=== PATIENT | male | born 1995 | race Caucasian/White ===

== ENCOUNTER 2018-05-26 08:46 | Inpatient (IN) ==
[2018-05-26] MEDS ORDERED: Morphine Inj 4 MG/ML Vial ONE (09:04)
[2018-05-26] MEDS ORDERED: Diphtheria/Tetanus/Pertussis Vaccine Inj 0.5 ML Syringe IM ONE (09:05)
[2018-05-26] MEDS ORDERED: ceFAZolin 2 GM Premix Inj 2 GM/50 ML PIGGYBACK IV.SIG ONE ×2 (09:05→10:00)
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
[2018-05-26 09:12] LABS: Baso % (Auto) 0.4 % (0.0-2.0); Eos # (Auto) 0.3 th/mm3 (0.0-0.4); Eos % (Auto) 2.8 % (0.0-4.0); Hematocrit 48.2 % (39.0-51.0); Hemoglobin 16.7 gm/dL (13.0-17.0); Lymph % (Auto) 10.6 % (9.0-44.0); Mean Corpuscular HGB Conc 34.7 % (32.0-36.0); Mean Corpuscular Hemoglobin 32.1 pg (27.0-34.0); Mean Corpuscular Volume 92.5 fL (80.0-100.0); Mean Platelet Volume 9.1 fL (7.0-11.0); Mono # (Auto) 0.5 th/mm3 (0.0-0.9); Mono % (Auto) 5.4 % (0.0-8.0); Neut # (Auto) 7.4 th/mm3 (1.8-7.7); Neut % (Auto) 80.8 % (16.0-70.0); Platelet Count 210 th/mm3 (150-450); Red Blood Count 5.21 mil/mm3 (4.50-5.90); Red Cell Distribution Width 14.1 % (11.6-17.2); White Blood Count 9.1 th/mm3 (4.0-11.0)
[2018-05-26 09:19] LABS: Activated Partial Thrombo Time 23.3 sec (24.3-30.1); INR 1.1 Ratio; Prothrombin Time 10.8 sec (9.8-11.6)
[2018-05-26] MEDS ORDERED: Etomidate Inj 20 MG/10 ML Ampul IV.PUSH ONE ×2 (09:23→09:25)
[2018-05-26] MEDS ORDERED: Succinylcholine Inj 200 MG/10 ML Vial ONE (09:24)
[2018-05-26] MEDS ORDERED: Lidocaine 2% 100 MG/5 ML Syringe ONE (09:24)
[2018-05-26] MEDS ORDERED: Lidocaine 2% 100 MG/5 ML Syringe IV.PUSH ONE (09:25)
[2018-05-26] MEDS ORDERED: Succinylcholine Inj 200 MG/10 ML Vial IV.PUSH ONE (09:25)
[2018-05-26] MEDS ORDERED: Propofol 1000 mg/100 ml Inj 1,000 MG/100 ML BOTTLE ONE (09:28)
[2018-05-26] MEDS ORDERED: Sod Chloride 0.9% Inj 1,000 ML IV.CONT SCH (09:30)
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
[2018-05-26] MEDS ORDERED: Propofol Inj 500 MG/50 ML Vial ONE (09:47)
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
[2018-05-26] MEDS ORDERED: Morphine Inj 4 MG/ML Vial IV.PUSH ONE (10:00)
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
[2018-05-26] MEDS: fentaNYL 10 mcg/mL Premix Drip 2,500 MCG/250 ML BAG IV.SIG PRN (11:43)
[2018-05-26 12:13] LABS: ABG Base Excess -1.1 mmol/L (-2-2); ABG PCO2 33 mmHg (38-42); ABG PO2 134 mmHg (61-120)
[2018-05-26] MEDS ORDERED: Acetaminophen 325 MG Tablet PO PRN (13:26)
[2018-05-26] MEDS ORDERED: Potassium Chloride 25 MEQ Effervescent Tablet PO PRN (13:34)
[2018-05-26] MEDS ORDERED: Propofol 1000 mg/100 ml Inj 1,000 MG/100 ML BOTTLE IV.CONT PRN (13:34)
[2018-05-26] MEDS ORDERED: Magnesium Sulfate Inj 4 GM in Sodium Chlor 0.9% Inj 92 ML IV.SIG PRN (13:34)
[2018-05-26] MEDS ORDERED: Potassium Phosphate 500 MG Soluble Tablet PO PRN ×2 (13:34)
[2018-05-26] MEDS ORDERED: Magnesium Oxide 400 MG Tablet PO PRN (13:34)
[2018-05-26] MEDS ORDERED: Potassium Phosphate Inj 30 MMOL in Sodium Chlor 0.9% Inj 250 ML IV.SIG PRN (13:34)
[2018-05-26] MEDS ORDERED: Potassium Chlor 20 mEq Premix 20 MEQ/100 ML PIGGYBACK IV.SIG PRN (13:34)
[2018-05-26] MEDS ORDERED: Potassium Chlor 40 mEq Premix 40 MEQ/100 ML PIGGYBACK IV.SIG PRN ×2 (13:34)
[2018-05-26] MEDS ORDERED: Magnesium Sulfate Inj 2 GM in Sodium Chlor 0.9% Inj 96 ML IV.SIG PRN (13:34)
[2018-05-26] MEDS ORDERED: Sodium Phosphate Inj 30 MMOL in Sodium Chlor 0.9% Inj 250 ML IV.SIG PRN (13:34)
[2018-05-26] MEDS: Propofol 1000 mg/100 ml Inj 1,000 MG/100 ML BOTTLE IV.CONT PRN (14:20)
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
[2018-05-26] MEDS: Oral Hygiene Kit OROPHARYNG SCH (18:32)
[2018-05-26] MEDS: Chlorhexidine 0.12% Oral Kit 15 ML UDC OROPHARYNG SCH (20:31)
[2018-05-26] MEDS: Famotidine 20 MG Tablet PO SCH (20:32)
[2018-05-26] MEDS: Senna/Docusate Sodium 8.6/50 MG Tablet PO SCH (20:32)
[2018-05-27] MEDS: Propofol 1000 mg/100 ml Inj 1,000 MG/100 ML BOTTLE IV.CONT PRN ×5 (00:10→23:59)
[2018-05-27] MEDS: Oral Hygiene Kit OROPHARYNG SCH ×5 (00:12→23:59)
[2018-05-27 04:12] LABS: Baso % (Auto) 0.3 % (0.0-2.0); Eos % (Auto) 0.3 % (0.0-4.0); Hematocrit 42.6 % (39.0-51.0); Hemoglobin 14.8 gm/dL (13.0-17.0); Lymph # (Auto) 0.5 th/mm3 (1.0-4.8); Lymph % (Auto) 7.4 % (9.0-44.0); Mean Corpuscular HGB Conc 34.7 % (32.0-36.0); Mean Corpuscular Hemoglobin 31.8 pg (27.0-34.0); Mean Corpuscular Volume 91.6 fL (80.0-100.0); Mean Platelet Volume 9.4 fL (7.0-11.0); Mono # (Auto) 0.5 th/mm3 (0.0-0.9); Mono % (Auto) 6.9 % (0.0-8.0); Neut # (Auto) 5.8 th/mm3 (1.8-7.7); Neut % (Auto) 85.1 % (16.0-70.0); Platelet Count 173 th/mm3 (150-450); Red Blood Count 4.65 mil/mm3 (4.50-5.90); White Blood Count 6.8 th/mm3 (4.0-11.0)
[2018-05-27 04:36] LABS: Alanine Aminotransferase 82 U/L (12-78); Anion Gap 11 meq/L (5-15); Aspartate Aminotransferase 57 U/L (15-37); Carbon Dioxide 21.4 meq/L (21.0-32.0); Chloride 108 meq/L (98-107); Glomerular Filtration Rate Greater Than 89 mL/min (>89); Glucose,Random 115 mg/dL (74-106); Potassium 3.2 meq/L (3.5-5.1); Sodium 140 meq/L (136-145)
[2018-05-27 04:38] LABS: Blood Urea Nitrogen 8 mg/dL (7-18); Total Protein 6.5 g/dL (6.4-8.2)
[2018-05-27 04:40] LABS: Alkaline Phosphatase 108 U/L (45-117)
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
[2018-05-27 06:12] LABS: ABG Base Excess -1.2 mmol/L (-2-2); ABG PCO2 34 mmHg (38-42); ABG PO2 62 mmHg (61-120)
--- NOTE | 2018-05-27 10:08 | MR ---
EXAM DATE: 05/27/2018 9:24 AM EDT AGE/SEX: 22 years / Male INDICATIONS: Pain. Trauma. CLINICAL DATA: This is the patient's subsequent encounter. Patient reports that signs and symptoms h ave been present for 2 days and indicates a pain score of Nonresponsive. MEDICAL/SURGICAL HISTORY: None. None. COMPARISON: [facility] [place], MR THORACIC SPINE W/O CONTRAST, 05/27/2018. [facility] [place], CT CERVICAL SPINE W/O CONTRA ST, 05/26/2018. . TECHNIQUE: Multiplanar, multisequence MRI examination of the cervical spine was performed without co ntrast. FINDINGS: Sagittal T1, T2 and inversion recovery images confirm an oblique fracture through the T1 vertebral christo dy with regional edema. Cervical levels are all intact. Spinal canal is widely patent throughout. Cor d signal is normal throughout. Posterior fossa is radiographically normal. There appears to be a glenis ngioma in T3 vertebral body. C2-C3: The thecal sac has a normal configuration. There is no evidence of disc herniation or spinal canal stenosis. The neural foramina are patent bilaterally. C3-C4: The thecal sac has a normal configuration. There is no evidence of disc herniation or spinal canal stenosis. The neural foramina are patent bilaterally. C4-C5: The thecal sac has a normal configuration. There is no evidence of disc herniation or spinal canal stenosis. The neural foramina are patent bilaterally. C5-C6: The thecal sac has a normal configuration. There is no evidence of disc herniation or spinal canal stenosis. The neural foramina are patent bilaterally. C6-C7: The thecal sac has a normal configuration. There is no evidence of disc herniation or spinal canal stenosis. The neural foramina are patent bilaterally. C7-T1: No epidural impressions seen. CONCLUSION: 1. Oblique fracture through the T1 vertebral body with bony regional edema. No associated spinal noé nosis. 2. Otherwise, spinal canal is widely patent throughout with a normal radiographic appearance of the cervical spine Electronically signed by: Joe Lin MD 05/27/2018 10:07 AM EDT
--- NOTE | 2018-05-27 10:13 | MR ---
EXAM DATE: 05/27/2018 9:19 AM EDT AGE/SEX: 22 years / Male INDICATIONS: Pain. T1 fracture - s/p trauma CLINICAL DATA: This is the patient's subsequent encounter. Patient reports that signs and symptoms h ave been present for 2 days and indicates a pain score of Nonresponsive. MEDICAL/SURGICAL HISTORY: None. None. COMPARISON: [facility] [place], CT CHEST W CONTRAST, 05/26/2018. . TECHNIQUE: Multiplanar, multisequence MRI of the thoracic spine was performed. FINDINGS: Sagittal T1, T2 and inversion recovery images confirm the oblique fracture through the T1 vertebral b rosemarie. Associated vertebral body edema but no significant retropulsed fragment. The spinal canal is wid saundra patent throughout. Vertebral body and disc heights are maintained at all remaining thoracic level s. Probable hemangioma in the T3 vertebral body. There appears to be dense consolidation/atelectasis in both lung bases. T1-T2: Vertebral body edema at T1 associated with the oblique fracture. Spinal canal is patent T2-T3: The thecal sac has a normal diameter. No evidence of disc bulge or protrusion. T3-T4: The thecal sac has a normal diameter. No evidence of disc bulge or protrusion. T4-T5: The thecal sac has a normal diameter. No evidence of disc bulge or protrusion. T5-T6: The thecal sac has a normal diameter. No evidence of disc bulge or protrusion. T6-T7: The thecal sac has a normal diameter. No evidence of disc bulge or protrusion. T7-T8: The thecal sac has a normal diameter. No evidence of disc bulge or protrusion. T8-T9: The thecal sac has a normal diameter. No evidence of disc bulge or protrusion. T9-T10: The thecal sac has a normal diameter. No evidence of disc bulge or protrusion. T10-T11: The thecal sac has a normal diameter. No evidence of disc bulge or protrusion. T11-T12: The thecal sac has a normal diameter. No evidence of disc bulge or protrusion. T12-L1: The thecal sac has a normal diameter. No evidence of disc bulge or protrusion. CONCLUSION: 1. MR confirms the presence of an isolated, oblique fracture through the T1 vertebral body with asso ciated vertebral body edema. 2. Remaining thoracic levels are intact with preservation of vertebral body and disc heights. Spinal canal is widely patent. 3. A hemangioma of the T3 vertebral body. 4. Dense consolidation/atelectasis in both lung bases. Electronically signed by: Joe Lin MD 05/27/2018 10:12 AM EDT
[2018-05-27] MEDS: Chlorhexidine 0.12% Oral Kit 15 ML UDC OROPHARYNG SCH ×2 (10:16→22:48)
[2018-05-27] MEDS: Famotidine 20 MG Tablet PO SCH ×2 (10:16→22:11)
[2018-05-27] MEDS: Senna/Docusate Sodium 8.6/50 MG Tablet PO SCH ×2 (10:17→22:10)
[2018-05-27] MEDS: fentaNYL 10 mcg/mL Premix Drip 2,500 MCG/250 ML BAG IV.SIG PRN ×2 (10:17→22:13)
[2018-05-27] MEDS: Potassium Chlor 20 mEq Premix 20 MEQ/100 ML PIGGYBACK IV.SIG PRN ×2 (10:18→12:53)
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
--- NOTE | 2018-05-27 17:39 | ECHRPT ---
Indication: SHORTNESS OF BREATH CONCLUSIONS Normal left ventricular size. Wall thickness is normal. The left ventricular systolic function is low normal with an estimated ejection fraction in the rang e of 50- 55%. [id number] mitral valve regurgitation. There is trace tricuspid valve regurgitation. BP: / HR: Rhythm: Sinus MEASUREMENTS (Male / Female) Normal Values Technical Quality:Technically difficult study 2D ECHO LV Diastolic Diameter PLAX 3.7 cm 4.2 - 5.9 / 3.9 - 5.3 cm LV Systolic Diameter PLAX 3.1 cm IVS Diastolic Thickness 1.0 cm 0.6 - 1.0 / 0.6 - 0.9 cm LVPW Diastolic Thickness 1.0 cm 0.6 - 1.0 / 0.6 - 0.9 cm LV Relative Wall Thickness 0.5 RV Internal Dim ED PLAX 2.2 cm LVOT Diameter 2.1 cm Aortic Root Diameter 2.8 cm LA Systolic Diameter LX 2.7 cm 3.0 - 4.0 / 2.7 - 3.8 cm DOPPLER AV Peak Velocity 94.0 cm/s AV Peak Gradient 3.5 mmHg AV Mean Gradient 2.0 mmHg AV Velocity Time Integral 12.9 cm LVOT Peak Velocity 83.5 cm/s LVOT Peak Gradient 2.8 mmHg LVOT Velocity Time Integral 11.6 cm AV Area Cont Eq vti 3.1 cm AV Area Cont Eq pk 3.1 cm Mitral E Point Velocity 87.4 cm/s Mitral A Point Velocity 82.9 cm/s Mitral E to A Ratio 1.1 LV E' Lateral Velocity 12.0 cm/s Mitral E to LV E' Lateral Ratio 7.3 LV E' Septal Velocity 6.6 cm/s Mitral E to LV E' Septal Ratio 13.2 PV Peak Velocity 92.5 cm/s PV Peak Gradient 3.4 mmHg FINDINGS LEFT VENTRICLE Normal left ventricular size. Wall thickness is normal. The left ventricular systolic function is low normal with an estimated ejection fraction in the rang e of 50- 55%. RIGHT VENTRICLE Normal right ventricular size and systolic function. LEFT ATRIUM The left atrial size is normal. RIGHT ATRIUM The right atrial size is normal. ATRIAL SEPTUM No atrial level shunt is demonstrated by color flow Doppler interrogation. AORTA The aortic root and proximal ascending aorta are normal in size on limited imaging. MITRAL VALVE [id number] mitral valve regurgitation. AORTIC VALVE No aortic valve stenosis or regurgitation. TRICUSPID VALVE There is trace tricuspid valve regurgitation. PULMONARY VALVE No pulmonary valve regurgitation or stenosis. VESSELS The inferior vena cava is normal in size. PERICARDIUM No pericardial effusion. Landon Shook MD, FACC, [facility] [place] (Electronically Signed) Final Date:27 May 2018 17:38
[2018-05-27 23:57] LABS: Bacteria,Urine Rare /hpf; Bilirubin,Urine Negative (Negative); Clarity,Urine Hazy (Clear); Color,Urine Yellow (Yellw/Straw); Glucose,Urine (UA) Negative (Negative); Hyaline Casts,Urine 1 /lpf (0-3); Leukocyte Esterase,Urine Negative (Negative); Mucus,Urine Few /lpf (Occasional); Nitrite,Urine Negative (Negative); Specific Gravity,Urine 1.017 (1.002-1.035); Squamous Epithelial Cell,Urine <1 /hpf (0-5)
[2018-05-28] MEDS: Propofol 1000 mg/100 ml Inj 1,000 MG/100 ML BOTTLE IV.CONT PRN ×6 (03:25→23:17)
--- NOTE | 2018-05-28 05:14 | XR ---
EXAM DATE: 05/28/2018 5:00 AM EDT AGE/SEX: 22 years / Male INDICATIONS: Respiratory disease. CLINICAL DATA: This is the patient's subsequent encounter. Patient reports that signs and symptoms h ave been present for 3 days and indicates a pain score of Nonresponsive. MEDICAL/SURGICAL HISTORY: Non-responsive. Non-responsive. [place] [facility] [place]. . FINDINGS: Mild patchy parenchymal consolidation of both bases again seen, not significantly changed. Small, giovanny ateral pleural effusions are also suspected. I don't see a pneumothorax. Patient remains intubated. Endotracheal tube tip is approximately 6 cm above the tunde. There is a n asogastric tube coursing in the stomach. CONCLUSION: No significant change patchy consolidation and small effusions of both bases. Electronically signed by: Eb Kaufman MD 05/28/2018 5:13 AM EDT
[2018-05-28 06:24] LABS: ABG Base Excess -2.9 mmol/L (-2-2); ABG PCO2 30 mmHg (38-42); ABG PO2 110 mmHg (61-120)
[2018-05-28] MEDS: Oral Hygiene Kit OROPHARYNG SCH ×3 (06:56→15:18)
[2018-05-28] MEDS: fentaNYL 10 mcg/mL Premix Drip 2,500 MCG/250 ML BAG IV.SIG PRN (06:56)
[2018-05-28] MEDS: Chlorhexidine 0.12% Oral Kit 15 ML UDC OROPHARYNG SCH ×2 (07:50→21:53)
[2018-05-28] MEDS: Famotidine 20 MG Tablet PO SCH ×2 (09:58→21:53)
[2018-05-28] MEDS: Senna/Docusate Sodium 8.6/50 MG Tablet PO SCH ×2 (09:58→21:53)
[2018-05-28] MEDS: QUEtiapine 25 MG Tablet PO SCH ×2 (11:22→21:52)
[2018-05-28 12:21] LABS: Baso % (Auto) 0.4 % (0.0-2.0); Eos # (Auto) 0.3 th/mm3 (0.0-0.4); Eos % (Auto) 3.6 % (0.0-4.0); Hematocrit 39.6 % (39.0-51.0); Hemoglobin 13.4 gm/dL (13.0-17.0); Lymph # (Auto) 0.6 th/mm3 (1.0-4.8); Lymph % (Auto) 6.2 % (9.0-44.0); Mean Corpuscular HGB Conc 33.8 % (32.0-36.0); Mean Corpuscular Hemoglobin 31.5 pg (27.0-34.0); Mean Corpuscular Volume 93.2 fL (80.0-100.0); Mean Platelet Volume 9.9 fL (7.0-11.0); Mono # (Auto) 0.6 th/mm3 (0.0-0.9); Mono % (Auto) 6.5 % (0.0-8.0); Neut # (Auto) 7.8 th/mm3 (1.8-7.7); Neut % (Auto) 83.3 % (16.0-70.0); Platelet Count 173 th/mm3 (150-450); Red Blood Count 4.25 mil/mm3 (4.50-5.90); Red Cell Distribution Width 14.1 % (11.6-17.2); White Blood Count 9.4 th/mm3 (4.0-11.0)
[2018-05-28 12:42] LABS: Alanine Aminotransferase 56 U/L (12-78); Albumin 2.8 g/dL (3.4-5.0); Anion Gap 7 meq/L (5-15); Aspartate Aminotransferase 42 U/L (15-37); Blood Urea Nitrogen 6 mg/dL (7-18); Calcium 8.4 mg/dL (8.5-10.1); Carbon Dioxide 24.1 meq/L (21.0-32.0); Chloride 112 meq/L (98-107); Glomerular Filtration Rate Greater Than 89 mL/min (>89); Glucose,Random 73 mg/dL (74-106); Sodium 143 meq/L (136-145)
[2018-05-28 12:44] LABS: Alkaline Phosphatase 96 U/L (45-117); Total Protein 6.6 g/dL (6.4-8.2)
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
[2018-05-29 05:39] LABS: ABG PCO2 38 mmHg (38-42); ABG PO2 89 mmHg (61-120)
[2018-05-29] MEDS: Oral Hygiene Kit OROPHARYNG SCH ×2 (05:57→05:58)
[2018-05-29] MEDS: Propofol 1000 mg/100 ml Inj 1,000 MG/100 ML BOTTLE IV.CONT PRN ×3 (05:58→08:19)
[2018-05-29] MEDS: fentaNYL 10 mcg/mL Premix Drip 2,500 MCG/250 ML BAG IV.SIG PRN (06:30)
[2018-05-29 06:58] LABS: Baso % (Auto) 0.4 % (0.0-2.0); Eos # (Auto) 0.4 th/mm3 (0.0-0.4); Eos % (Auto) 5.3 % (0.0-4.0); Hematocrit 41.9 % (39.0-51.0); Hemoglobin 13.3 gm/dL (13.0-17.0); Lymph # (Auto) 0.5 th/mm3 (1.0-4.8); Lymph % (Auto) 7.9 % (9.0-44.0); Mean Corpuscular HGB Conc 31.7 % (32.0-36.0); Mean Corpuscular Hemoglobin 31.2 pg (27.0-34.0); Mean Corpuscular Volume 98.6 fL (80.0-100.0); Mean Platelet Volume 9.8 fL (7.0-11.0); Mono # (Auto) 0.5 th/mm3 (0.0-0.9); Mono % (Auto) 6.6 % (0.0-8.0); Neut # (Auto) 5.5 th/mm3 (1.8-7.7); Neut % (Auto) 79.8 % (16.0-70.0); Platelet Count 145 th/mm3 (150-450); Red Blood Count 4.25 mil/mm3 (4.50-5.90); Red Cell Distribution Width 14.5 % (11.6-17.2); White Blood Count 6.9 th/mm3 (4.0-11.0)
[2018-05-29 07:12] LABS: Alanine Aminotransferase 47 U/L (12-78); Albumin 2.4 g/dL (3.4-5.0); Alkaline Phosphatase 102 U/L (45-117); Anion Gap 13 meq/L (5-15); Aspartate Aminotransferase 38 U/L (15-37); Blood Urea Nitrogen 7 mg/dL (7-18); Calcium 8.6 mg/dL (8.5-10.1); Carbon Dioxide 18.9 meq/L (21.0-32.0); Chloride 111 meq/L (98-107); Glomerular Filtration Rate Greater Than 89 mL/min (>89); Potassium 4.3 meq/L (3.5-5.1); Sodium 143 meq/L (136-145); Total Protein 6.6 g/dL (6.4-8.2)
[2018-05-29 07:15] LABS: Glucose,Random 47 mg/dL (74-106)
[2018-05-29] MEDS: QUEtiapine 25 MG Tablet PO SCH (09:04)
[2018-05-29] MEDS: Famotidine 20 MG Tablet PO SCH (09:04)
[2018-05-29] MEDS: Senna/Docusate Sodium 8.6/50 MG Tablet PO SCH (09:04)
[2018-05-29] MEDS: Chlorhexidine 0.12% Oral Kit 15 ML UDC OROPHARYNG SCH (09:04)
[2018-05-29] MEDS ORDERED: Dextrose 50% in Water 50 ML Vial IV.PUSH PRN (09:44)
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
[2018-05-29] MEDS: Enoxaparin Inj 40 MG/0.4 ML Syringe SQ SCH (10:18)
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
[2018-05-29] MEDS ORDERED: oxyCODONE/Acetaminophen 10/325 Tablet PO PRN (11:28)
[2018-05-29] MEDS: Morphine Inj 4 MG/ML Vial IV.PUSH PRN (12:07)
[2018-05-29] MEDS: Dextrose 10% in Water Inj 1,000 ML IV.CONT SCH (12:09)
[2018-05-29] MEDS: Lidocaine 5% Patch T-DERMAL SCH (12:10)
[2018-05-29] MEDS: Dexmedetomidine Inj 200 MCG in Sodium Chlor 0.9% Inj 48 ML IV.CONT PRN ×2 (17:44→21:30)
[2018-05-30] MEDS: Morphine Inj 4 MG/ML Vial IV.PUSH PRN (00:58)
[2018-05-30] MEDS: QUEtiapine 25 MG Tablet PO SCH ×3 (01:00→21:48)
[2018-05-30] MEDS: Famotidine 20 MG Tablet PO SCH ×3 (01:00→21:49)
[2018-05-30] MEDS: Senna/Docusate Sodium 8.6/50 MG Tablet PO SCH ×3 (01:00→21:49)
[2018-05-30] MEDS: Dextrose 10% in Water Inj 1,000 ML IV.CONT SCH ×2 (05:32→06:53)
[2018-05-30] MEDS: Enoxaparin Inj 40 MG/0.4 ML Syringe SQ SCH (09:17)
[2018-05-30] MEDS: Dexmedetomidine Inj 200 MCG in Sodium Chlor 0.9% Inj 48 ML IV.CONT PRN ×2 (09:35→21:47)
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
[2018-05-31] MEDS: Dextrose 10% in Water Inj 1,000 ML IV.CONT SCH ×2 (06:11→06:39)
[2018-05-31] MEDS: Dexmedetomidine Inj 200 MCG in Sodium Chlor 0.9% Inj 48 ML IV.CONT PRN (06:36)
[2018-05-31] MEDS: Lidocaine 5% Patch T-DERMAL SCH ×2 (07:52→08:42)
[2018-05-31] MEDS: Senna/Docusate Sodium 8.6/50 MG Tablet PO SCH ×2 (08:35→21:03)
[2018-05-31] MEDS: Famotidine 20 MG Tablet PO SCH ×2 (08:42→23:04)
[2018-05-31] MEDS: Enoxaparin Inj 40 MG/0.4 ML Syringe SQ SCH (08:42)
[2018-05-31] MEDS: QUEtiapine 25 MG Tablet PO SCH ×3 (08:42→23:04)
[2018-05-31] MEDS: levETIRAcetam 500 MG Tablet PO SCH ×2 (10:05→21:02)
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
--- NOTE | 2018-05-31 17:26 | P.PNNS ---
Subjective Interval history: 05/31: extubated, intermittent restlessness. following commands x 4. <Evelyn Grier - Last Filed: 05/31/18 17:19> Physical Exam Vital signs: Vital Signs 05/30/18 20:00 05/30/18 20:09 05/30/18 22:00 Temperature 99.1 F Pulse Rate 90 95 H 88 Respiratory Rate 17 20 Blood Pressure 113/74 Pulse Oximetry 92 L 93 L 05/31/18 00:00 05/31/18 02:00 05/31/18 04:00 Temperature 99.2 F 99.2 F Pulse Rate 78 73 73 Respiratory Rate 17 17 Blood Pressure 117/71 117/71 Pulse Oximetry 91 L 91 L 05/31/18 05:47 05/31/18 06:00 05/31/18 06:33 Temperature 99.1 F 99.1 F Pulse Rate 78 73 65 Respiratory Rate Blood Pressure 109/68 127/72 Pulse Oximetry 97 95 05/31/18 07:22 05/31/18 07:47 05/31/18 08:00 Temperature 99.4 F 99.4 F Pulse Rate 70 76 Respiratory Rate 21 21 Blood Pressure 113/68 118/68 Pulse Oximetry 96 96 96 05/31/18 08:47 05/31/18 10:00 05/31/18 12:00 Temperature 99.4 F 100 F H Pulse Rate 75 90 78 Respiratory Rate 21 23 Blood Pressure 118/68 121/81 Pulse Oximetry 96 94 L 05/31/18 12:47 05/31/18 15:15 Temperature 100 F H Pulse Rate 78 Respiratory Rate 23 21 Blood Pressure 121/81 Pulse Oximetry 94 L Intake & Output 05/30/18 05/31/18 05/31/18 18:59 06:59 18:59 Intake Total 105 / 105 1185 / 1185 363 / 363 Output Total 800 / 800 Balance 105 / 105 385 / 385 363 / 363 Weight 92.6 kg Intake: IV 105 / 105 1100 / 1100 363 / 363 Precedex Inj 200 MCG In NS Inj 100 / 100 8 / 8 48 ML @ 0.2 MCG/KG/HR 4.81 mls/ hr IV.CONT TITRATE PRN Rx#: [id number] D10W Inj 1,000 ML @ 50 mls/hr 1000 / 1000 150 / 150 IV.CONT .Q20H CL Rx#:[id number] Ofirmev Inj 1,000 mg In 100 ml 100 / 100 @ 400 mls/hr IV.SIG Q6H PRN Rx# :[id number] Keppra Inj 500 MG In NS Inj 100 105 / 105 105 / 105 ML @ 420 mls/hr IV.SIG Q12H CL Rx#:[id number] Oral 85 / 85 Output: Urine 800 / 800 Other: Date of Last Bowel Movement 05/31/18 05/31/18 # Bowel Movements 5 Narrative: Mr Ortega is awake, sedated on Seroquel. Cranial Nerves: Pupils equal, 3 mm round, reactive to light. Cervical Spine: The patient's neck is in a hard collar. Motor: moves purposefully all 4 extremities symmetrically and to command Sensory: On examination there there is response to painful stimuli, localizing with both upper and lower extremities. Cerebellar: cannot be adequately assessed due to the patient's neurological condition. Lungs: clear Heart: Regular rhythm and rate Skin: warm and dry - Urinary Catheter Management Indwelling Urethral Catheter Cath placed during this visit: yes, but has since been removed by the nurse Reason for continuing: Acute urinary retention Insertion date: 05/31/18 Insertion time: 16:10 Removal date: 05/29/18 Removal time: 18:00 <Evelyn Grier - Last Filed: 05/31/18 17:19> Narrative: Mr Ortega is awake, sedated on Seroquel. Cranial Nerves: Pupils equal, 3 mm round, reactive to light. Cervical Spine: The patient's neck is in a hard collar. Motor: moves purposefully all 4 extremities symmetrically and to command Sensory: On examination there there is response to painful stimuli, localizing with both upper and lower extremities. Cerebellar: cannot be adequately assessed due to the patient's neurological condition. Lungs: clear Heart: Regular rhythm and rate Skin: warm and dry - Urinary Catheter Management Indwelling Urethral Catheter Cath placed during this visit: no <Mynor Covarrubias - Last Filed: 06/09/18 14:10> Assessment and Plan - Plan Pelvis X-Ray 05/26/18 08:48 CONCLUSION: 1. Negative pelvis status post trauma. Abdomen/Pelvis CT 05/26/18 08:54 CONCLUSION: 1. No findings to indicate acute intra-abdominal trauma. 2. Imaging through the lung bases demonstrates a punctate collection of gas in the epicardial fat pad on the right and a very tiny pneumothorax anteriorly on the left. CT imaging through the thorax for further assessment would be warranted. Cervical Spine CT 05/26/18 08:54 CONCLUSION: 1. Obliquely oriented T1 vertebral body fracture involving both endplates. There is high likelihood of posterior longitudinal ligament injury. 2. Nondisplaced fracture of the proximal posterior first left rib. Chest CT 05/26/18 08:54 CONCLUSION: 1. Minimally displaced fracture of the anterior third of the first thoracic vertebral body. 2. Displaced fracture involving the first rib on the right. 3. Nondisplaced fracture of the second rib on the right. 4. Punctate pneumothorax along the anterior margin of the left upper lobe. 5. Punctate collection of gas in the epicardial fat pad on the right. 6. Contusion or atelectasis in the right lower lobe. 7. Results called directly to Dr. Yeboah. Face CT 05/26/18 08:54 CONCLUSION: 1. No acute facial fractures. 2. Paranasal sinus mucosal disease, as above. 3. Nonspecific mild cervical adenopathy. Head CT 05/26/18 08:54 CONCLUSION: 1. Focal small 1 cm hemorrhagic punctate contusions high along the left posterior cerebral vertex. 2. Very small acute right-sided subdural hematoma with approximately 2 mm of separation. Cervical Spine MRI 05/27/18 00:00 CONCLUSION: 1. Oblique fracture through the T1 vertebral body with bony regional edema. No associated spinal stenosis. 2. Otherwise, spinal canal is widely patent throughout with a normal radiographic appearance of the cervical spine Head MRI 05/27/18 00:00 CONCLUSION: 1. Findings of traumatic brain injury are noted and include a small right- sided subdural hematoma, left frontal parietal cortical hemorrhage, punctate microbleeds characteristic of shear injury and left-sided brainstem edema. 2. No significant mass effect or shift of the midline structures. Thoracic Spine MRI 05/27/18 00:00 CONCLUSION: 1. MR confirms the presence of an isolated, oblique fracture through the T1 vertebral body with associated vertebral body edema. 2. Remaining thoracic levels are intact with preservation of vertebral body and disc heights. Spinal canal is widely patent. 3. A hemangioma of the T3 vertebral body. 4. Dense consolidation/atelectasis in both lung bases. Chest X-Ray 05/28/18 06:00 CONCLUSION: No significant change patchy consolidation and small effusions of both bases. Continue neuro checks in a serial fashion. Pulmonary: aggressive pulmonary toilette, nasotracheal suction, and breathing treatments with nebulizers. T spine fracture. I reviewed his MRI C and T spine. Nonoperative treatment. Support with TLSO brace for comfort Daily PT and OT Renal: Continue to monitor closely urine output, BUN and creatinine Endocrine: Continue to Monitor serial Acu checks and SSI as needed in detail ID continue to monitor for signs of infection Continue Protonix for stress ulcer prophylaxis Continue Pete hose and SCD's for DVT prophylaxis <Evelyn Grier - Last Filed: 05/31/18 17:19> - Plan Continue neuro checks in a serial fashion. Pulmonary: aggressive pulmonary toilette, nasotracheal suction, and breathing treatments with nebulizers. T spine fracture. I reviewed his MRI C and T spine. Nonoperative treatment. Support with TLSO brace for comfort Daily PT and OT Renal: Continue to monitor closely urine output, BUN and creatinine Endocrine: Continue to Monitor serial Acu checks and SSI as needed in detail ID continue to monitor for signs of infection Continue Protonix for stress ulcer prophylaxis Continue Pete hose and SCD's for DVT prophylaxis The exam, history, and the medical decision-making described in the above note were completed with the assistance of the mid-level provider. I reviewed and agree with the findings presented. I attest that I had a [id number] encounter with the patient on the same day, and personally performed and documented my assessment and findings in the medical record. <Mynor Covarrubias - Last Filed: 06/09/18 14:10>
--- NOTE | 2018-06-01 01:14 | XR ---
EXAM DATE: 06/01/2018 1:09 AM EDT AGE/SEX: 22 years / Male INDICATIONS: Follow up respiratory status. CLINICAL DATA: This is the patient's subsequent encounter. Patient reports that signs and symptoms h ave been present for 3 days and indicates a pain score of Nonresponsive. MEDICAL/SURGICAL HISTORY: None. None. COMPARISON: [facility] [place]ST 1V SINGLE AP, 05/28/2018. . FINDINGS: A single AP view of the chest demonstrates bibasilar airspace consolidation with associated effusions , unchanged. Heart size is upper limits of normal. Endotracheal and nasogastric tubes have been remov ed. Osseous structures are intact. CONCLUSION: 1. Interval removal of the endotracheal and nasogastric tubes. 2. Persistent bibasilar airspace disease with associated effusions, unchanged. Electronically signed by: Joe Lin MD 06/01/2018 1:12 AM EDT
[2018-06-01 04:06] LABS: Baso % (Auto) 0.4 % (0.0-2.0); Eos # (Auto) 0.3 th/mm3 (0.0-0.4); Eos % (Auto) 3.6 % (0.0-4.0); Hematocrit 42.6 % (39.0-51.0); Hemoglobin 14.9 gm/dL (13.0-17.0); Lymph # (Auto) 0.7 th/mm3 (1.0-4.8); Lymph % (Auto) 8.2 % (9.0-44.0); Mean Corpuscular HGB Conc 35.1 % (32.0-36.0); Mean Corpuscular Hemoglobin 32.1 pg (27.0-34.0); Mean Corpuscular Volume 91.5 fL (80.0-100.0); Mean Platelet Volume 8.6 fL (7.0-11.0); Mono # (Auto) 0.9 th/mm3 (0.0-0.9); Mono % (Auto) 10.7 % (0.0-8.0); Neut # (Auto) 6.6 th/mm3 (1.8-7.7); Neut % (Auto) 77.1 % (16.0-70.0); Platelet Count 350 th/mm3 (150-450); Red Blood Count 4.66 mil/mm3 (4.50-5.90); Red Cell Distribution Width 13.5 % (11.6-17.2); White Blood Count 8.6 th/mm3 (4.0-11.0)
[2018-06-01 04:29] LABS: Anion Gap 10 meq/L (5-15); Blood Urea Nitrogen 12 mg/dL (7-18); Calcium 8.7 mg/dL (8.5-10.1); Carbon Dioxide 24.4 meq/L (21.0-32.0); Chloride 103 meq/L (98-107); Glomerular Filtration Rate Greater Than 89 mL/min (>89); Glucose,Random 82 mg/dL (74-106); Potassium 3.8 meq/L (3.5-5.1); Sodium 137 meq/L (136-145)
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
[2018-06-01] MEDS: Lidocaine 5% Patch T-DERMAL SCH (08:38)
[2018-06-01] MEDS: Famotidine 20 MG Tablet PO SCH ×2 (08:39→20:48)
[2018-06-01] MEDS: Senna/Docusate Sodium 8.6/50 MG Tablet PO SCH (08:39)
[2018-06-01] MEDS: levETIRAcetam 500 MG Tablet PO SCH ×2 (08:39→20:48)
[2018-06-01] MEDS: Enoxaparin Inj 40 MG/0.4 ML Syringe SQ SCH (08:39)
[2018-06-01] MEDS: QUEtiapine 25 MG Tablet PO SCH (09:00)
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
[2018-06-01] MEDS: Ibuprofen 400 MG Tablet PO PRN (20:48)
[2018-06-02] MEDS: Senna/Docusate Sodium 8.6/50 MG Tablet PO SCH ×2 (03:00→09:24)
[2018-06-02] MEDS: Ibuprofen 400 MG Tablet PO PRN ×2 (07:14→15:01)
[2018-06-02] MEDS: Famotidine 20 MG Tablet PO SCH (09:23)
[2018-06-02] MEDS: levETIRAcetam 500 MG Tablet PO SCH (09:23)
[2018-06-02] MEDS: Lidocaine 5% Patch T-DERMAL SCH (09:24)
[2018-06-02] MEDS: Enoxaparin Inj 40 MG/0.4 ML Syringe SQ SCH (09:24)
--- NOTE | 2018-06-02 13:02 | P.DCO ---
- Physical Therapy Order: Evaluate and treat, Improve ambulation, Strength and gait training - Home Health Nursing Order: Nursing assessment with vital signs - Certification I have seen patient NESTOR ALMANZAR on 06/02/18. My clinical findings support the need for the requested home health care services because: Limited mobility due to disease progression, High risk of falls I certify that my clinical findings support that this patient is homebound because: Post-op weakness
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
== END 2018-06-02 20:36 ==
LOC: NEPI 08:46 → NEDA 09:33 → EDBD 09:33 → N03 10:00
PROVIDERS: ADMIT Surgery; ATTEND Surgery